=== PATIENT | female | born 1980 | race Caucasian/White ===

== ENCOUNTER 2019-12-01 02:15 | Outpatient (CLI) | payer MEDICAID, SELFPAY ==
[2019-12-01 10:42] LABS: Hemoglobin A1C 5.8 % (3.8-5.6)
[2019-12-01 10:48] LABS: Calculated LDL 139 mg/dL (<100); Cholesterol 211 mg/dL (<200); HDL Cholesterol 42 mg/dL (40-60); TSH (W/Ref FT4) 1.12 uIU/mL (0.36-3.74); Triglyceride 150 mg/dL (<150)
== END 2019-12-01 02:35 ==
PROVIDERS: PCP Nurse Practitioner; Visit Provider Nurse Practitioner
DX: E03.9 Hypothyroidism, unspecified (principal); Z13.1 Encounter for screening for diabetes mellitus
CPT/HCPCS: 36415; 80061; 83036; 84443

== ENCOUNTER 2019-12-07 03:56 | Outpatient (CLI) | payer MEDICAID, SELFPAY ==
[2019-12-07 13:04] LABS: Abs Immature Grans 0.01 k/cumm (0.0-0.09); Absolute Basophil Count 0.02 k/cumm (0.0-0.2); Absolute Eosinophil Count 0.19 k/cumm (0.0-0.7); Absolute Lymphocyte Count 3.12 k/cumm (1.2-3.4); Absolute Monocyte Count 0.44 k/cumm (0.11-0.7); Absolute Neutrophil Count 3.47 k/cumm (1.2-6.7); Basophils % 0.3; Eosinophils % 2.6; HCT 40.1 % (36.0-46.0); HGB 13.6 g/dL (12.0-15.5); Immature Grans % 0.1 %; Mean Corp. HGB Concentration 33.9 g/dL (32.0-36.0); Mean Corpuscular Hemoglobin 31.2 pg (27.0-33.0); Mean Platelet Volume 9.6 fL (8.0-11.0); Monocytes % 6.1; Neutrophils % 47.9; Platelet Count 351 x1000/uL (130-400); RBC 4.36 m/cumm (4.00-5.20); RBC Distribution Width 12.9 % (11.7-14.6); White Blood Cell Count 7.25 k/cumm (4.4-10.8)
[2019-12-07 13:28] LABS: ALT 48 U/L (14-59); AST 35 U/L (15-37); Albumin 3.6 g/dL (3.4-5.0); Alkaline Phosphatase 81 U/L (46-116); BUN 9 mg/dL (7-18); Bilirubin, Total 0.2 mg/dL (0.2-1.0); CREATININE 0.97 mg/dL (0.55-1.02); Calcium 8.9 mg/dL (8.5-10.1); Chloride 104 mmol/L (98-107); Glucose 104 mg/dL (74-106); Potassium 4.1 mmol/L (3.5-5.1); Sodium 141 mmol/L (136-145)
[2019-12-08 10:46] LABS: Hepatitis C Ab w Rflx HCV PCR Reactive (Negative)
[2019-12-10 08:44] LABS: HCV RNA Detection Quantitative 0 IU/mL (Undetected)
== END 2019-12-07 04:16 ==
PROVIDERS: PCP Nurse Practitioner; Visit Provider Physician Assistant Medical
DX: B18.2 Chronic viral hepatitis C (principal)
CPT/HCPCS: 36415; 80053; 86803; 85025; 87522

== ENCOUNTER 2020-05-17 03:14 | Outpatient (CLI) | payer MEDICAID, SELFPAY ==
[2020-05-17 13:22] LABS: Abs Immature Grans 0.03 10^3/uL (0.0-0.06); Absolute Basophil Count 0.03 10^3/uL (0.0-0.2); Absolute Eosinophil Count 0.18 10^3/uL (0.0-0.7); Absolute Lymphocyte Count 3.26 10^3/uL (1.2-3.4); Absolute Monocyte Count 0.47 10^3/uL (0.1-0.8); Absolute Neutrophil Count 4.29 10^3/uL (1.2-6.7); Basophils % 0.4; Eosinophils % 2.2; HCT 43.1 % (36.0-46.0); HGB 14.5 g/dL (11.2-15.7); Immature Grans % 0.4; Lymphocytes % 39.5; MCHC 33.6 % (32.0-36.0); MCV 92.3 fL (80-95); MPV 8.9 fL (8.0-11.0); Monocytes % 5.7; Neutrophils % 51.8; Nucleated RBC 0 %; Platelet Count 382 10^3/uL (130-400); RBC 4.67 10^6/uL (3.93-5.22); RDW 14.2 % (11.7-14.6); RDW-SD 47.5 fL; WBC 8.26 10^3/uL (4.4-10.8)
[2020-05-17 13:30] LABS: Prothrombin Time 10.4 sec (9.3-11.0)
[2020-05-17 14:01] LABS: ALT 41 U/L (14-59); AST 41 U/L (15-37); Albumin 3.8 g/dL (3.4-5.0); Alkaline Phosphatase 78 U/L (46-116); Anion Gap 13.8 mmol/L (3-11); BUN 3 mg/dL (7-18); Bilirubin, Total 0.3 mg/dL (0.2-1.0); CO2 22.2 mmol/L (21.0-32.0); CREATININE 0.82 mg/dL (0.55-1.02); Calcium 9.2 mg/dL (8.5-10.1); Chloride 102 mmol/L (98-107); Glucose 97 mg/dL (74-106); Potassium 3.5 mmol/L (3.5-5.1); Sodium 138 mmol/L (136-145); Total Protein 7.3 g/dL (6.4-8.2)
[2020-05-18 13:13] LABS: HCV RNA Qualitative Undetected (Undetected)
== END 2020-05-17 03:34 ==
PROVIDERS: PCP Nurse Practitioner; Visit Provider Physician Assistant Medical
DX: B18.2 Chronic viral hepatitis C (principal)
CPT/HCPCS: 36415; 80053; 86803; 87522; 85025; 85610

== ENCOUNTER 2022-05-18 12:29 | Emergency (ER) | payer MEDICAID, SELFPAY ==
[2022-05-18 12:38] VITALS: BP 175/152; PULSE 99; RESP 22; TEMP 36.8; O2SAT 99
--- NOTE | 2022-05-18 12:49 | ED.GENADUL_ITS ---
Discharge Plan Disposition Patient Disposition: HOME Condition: Stable Discharge Details Clinical Impression: UTI (urinary tract infection) Primary Care Provider: Patricia De Oliveira ED Provider: Nish Solis Home Meds and New Rx's Prescriptions: New cephalexin 500 mg capsule 500 mg PO TID 5 Days Qty: 15 0RF Continued albuterol sulfate 90 mcg/actuation HFA aerosol inhaler 2 puff IH QID PRN (Reason: shortness of breath or wheezing) Qty: 8.5 3RF bupropion HCl 300 mg tablet extended release 24 hr 300 mg PO QAM dextroamphetamine sulfate 20 mg tablet 20 mg PO TID gabapentin 600 mg tablet 600 mg PO TID drospirenone-ethinyl estradiol 3-0.02 mg tablet 1 tab PO DAILY olopatadine 0.1 % drops 1 drp OP BID Qty: 5 1RF Rx Instructions: 1 drop each eye 2x per day: separate doses by at least 6-8 hours clonazepam 1 MG tablet 1 mg PO BID PRN Discharge Instructions Instructions: Urinary Tract Infection in Women (ED) Additional Instructions: Take the antibiotic cephalexin every 6 hours today and then begin every 8 hours/3 times a day until finished. Take Pyridium 2 times daily to heavy forger helper in reducing the uncomfortable sensation. This will turn your urine bright orange or yellow. A nonurgent referral has been placed on your behalf for evaluation of recurrent pilonidal cyst. Return to the emergency department for any acute concerns. Medical Decision Making 41-year-old female presents from home with days of intermittent burning and frequency of urine. She has had 2 spontaneous and 2 elective abortions but no term pregnancies. Breast menstrual period was approximately 1 month ago. Urinalysis obtained: Consistent with acute UTI. Will initiate Keflex and Pyridium. Patient is not . Patient also states she has had intermittent and recurrent drainage from piloni hyacinth cyst and requests nonurgent follow-up in general surgery clinic. I do feel it reasonable to place this referral on her behalf, that she may be seen in approximately 2 to 4 weeks time. Lab Data Lab results reviewed: Yes I reviewed the patient's lab results. Labs: Laboratory Results - last 24 hr 05/18/22 12:50 Urine Color Yellow Urine Clarity Clear Urine pH 6.0 Ur Specific [place] <= 1.005 Urine Protein Negative Urine Ketones Negative Urine Blood Negative Urine Nitrite Negative Urine Bilirubin Negative Urine Urobilinogen 0.2 Ur Leukocyte Esterase Small H Urine RBC 0-2 Urine WBC 20-50 H Ur Epithelial Cells Few Urine Crystals Negative Urine Bacteria Few Urine Casts Negative Urine Mucus Negative Ur Culture Indicated? Yes Urine Glucose Negative HPI General Mode of arrival: ambulatory . Date/Time Provider Initiated Documentation: 05/18/22 12:31 . Limitations to Documentation: no limitations . Information obtained by: patient . History of Present Illness 41 year old F presents to the emergency department with the chief complaint of Increased frequency and burning of urine, described as mild, and is localized to the genitals. Patient reports no radiation. Patient started experiencing this day(s) and it has been intermittent. No relieving factors improve symptom(s), No exacerbating factors reported . Patient notes denies fever/chills and nausea/vomiting. Patient did receive the following treatments prior to arrival, none Related Data Home Medications Medication Instructions Recorded Confirmed clonazepam 1 mg tablet 1 mg PO BID PRN 03/07/17 07/13/21 bupropion HCl 300 mg 24 hr tablet, 300 mg PO QAM 11/08/19 07/13/21 extended release dextroamphetamine sulfate 20 mg 20 mg PO TID 11/08/19 07/13/21 tablet drospirenone 3 mg-ethinyl 1 tab PO DAILY 11/08/19 07/13/21 estradiol 0.02 mg tablet gabapentin 600 mg tablet 600 mg PO TID 11/08/19 07/13/21 albuterol sulfate 90 mcg/actuation 2 puff inhalation QID PRN 01/03/20 07/13/21 aerosol inhaler shortness of breath or wheezing #8.5 grams olopatadine 0.1 % eye drops 1 drp ophthalmic (eye) BID #5 mL 03/02/20 07/13/21 cephalexin 500 mg capsule 500 mg PO TID 5 days #15 caps 05/18/22 Previous Rx's Medication Instructions Recorded albuterol sulfate 90 mcg/actuation 2 puff inhalation QID PRN 01/03/20 aerosol inhaler shortness of breath or wheezing #8.5 grams olopatadine 0.1 % eye drops 1 drp ophthalmic (eye) BID #5 mL 03/02/20 cephalexin 500 mg capsule 500 mg PO TID 5 days #15 caps 05/18/22 Allergies Allergy/AdvReac Type Severity Reaction Status Date / Time avocado Allergy Mild Hives, Unverified 12/02/19 11:12 difficulty breathing and swallowing coconut Allergy Mild facial Unverified 12/02/19 11:12 swelling house dust mite AdvReac Mild rash, Verified 12/02/19 11:12 itching mold AdvReac Mild rash, Verified 12/02/19 11:12 rhinitis pollen extracts AdvReac Mild itching Verified 12/02/19 11:12 artificial lemonade Allergy Mild Hives Uncoded 07/13/21 16:20 artificial strawberry flavor AdvReac Mild hives Uncoded 07/13/21 16:19 General Stated Complaint: Urinary GAYLE: 3 Review of Systems Narrative: No fever, chills, cough, nausea or vomiting. PFSH All Active Problems (Updated 05/18/22 @ 12:59 by Nish Solis MD) UTI (urinary tract infection) (Acute) Cough (Acute) Numbness and tingling in both hands (Acute) Hyperlipidemia (Acute) Glucose intolerance (Acute) Tobacco dependence (Acute) Elevated blood pressure reading without diagnosis of hypertension (Acute) PCOS (polycystic ovarian syndrome) (Acute) Alcoholism /alcohol abuse (Acute) Chronic hepatitis C without hepatic coma (Acute) 02/2020 [place] [facility] [place] Mild intermittent asthma (Acute) Psychotic disorder (Acute) Depression (Chronic) Post traumatic stress disorder (Acute) Anxiety and depression (Acute) Overweight (Acute) Hypothyroidism (acquired) (Acute) Medical History Periapical abscess Family History Mother Cancer Father Diabetes Heart disease Hyperlipidemia Hypertension Brother Depression Maternal Grandfather Heart disease Hypertension Paternal Grandfather Heart disease Hyperlipidemia Hypertension Maternal Grandmother No problems noted. Paternal Grandmother No problems noted. Social History Smoking/Tobacco Use Status: Current every day Tobacco Type: cigarettes Quit status: considering quitting Smoking risk assessment performed?: Yes Alcohol Intake: current Alcohol Intake frequency: a few times a week Alcohol type: hard liquor Drug use: Never Caregiver/Support person: No Household members: other Details: Mother,father Housing: house Communication Needs: None Do you need help understanding health information?: Never Pets and animals: No Sexually active: No Do you think of yourself as: straight/heterosexual Current gender identity: female What is your relationship status?: never How often do you talk on the phone with friends or family?: once per week How often do you get together with friends or relatives?: decline to answer How often do you attend orthodoxy or sikhism services?: 4 or more times per year Do you belong to any clubs or organized social groups?: no Panel score (0-1 are the most socially isolated patients): 1 What type of physical activity do you participate in: none Frequency: does not exercise [place]/Orthodox: Buddhism Special chelsea needs: No Seatbelt use: always Helmet use: No Drive intox or ride w/intox experienced truck driver: No Do you feel safe in your relationship?: Yes Exam Narrative Exam Narrative: GEN: awake, alert, oriented 3. Pleasant, well groomed, interactive. HEAD: Normocephalic, atraumatic ENT: Mucous membranes moist, oropharynx unremarkable, External ear exam unremarkable EYES: PERRL, EOMI NECK: Full ROM, no PALMA, no menigismus CHEST/RESP: Nontender, clear to auscultation bilateral, no wheeze/rhonchi/rales CARDIOVASCULAR: RRR, no murmur, rub patrizia. 2+ Rad pulse bilateral ABDOMEN: Soft, mild suprapubic tenderness without rebound or guarding, no mass. +Bowel sounds EXT: Full ROM, no edema, no rash Neuro: Grossly normal neurologic exam, conversant, interactive. Psych: Speech fluent, thoughts congruent, affect normal Course Vital Signs Vital signs: Vital Signs Temperature 36.8 C 05/18/22 12:38 Pulse 99 H 05/18/22 12:38 Respiratory Rate 05/18/22 12:38 Blood Pressure 175/152 H 05/18/22 12:38 Pulse Oximetry 99 05/18/22 12:38 Temperature 36.8 C 05/18/22 12:38 Temperature Source Oral 05/18/22 12:38 Pulse 99 H 05/18/22 12:38 Respiratory Rate 05/18/22 12:38 Blood Pressure 175/152 H 05/18/22 12:38 Blood Pressure Position Standing 05/18/22 12:38 Pulse Oximetry 99 05/18/22 12:38 Oxygen Delivery Method Room Air 05/18/22 12:38 Oxygen Flow Rate 0 05/18/22 12:38
[2022-05-18 12:58] LABS: Bilirubin Negative (Negative); Blood Negative (Negative); Clarity Clear (Clear); Glucose Negative (Negative); Ketones Negative (Negative); Leukocyte Esterase Small (Negative); Nitrite Negative (Negative); Specific Gravity <= 1.005 (1.005-1.025); Urobilinogen 0.2 EU/dL (Up TO 0.2)
[2022-05-18 13:06] LABS: Bacteria Few HPF (Negative); C & S Indicated? Yes; Casts Negative LPF (Negative); Crystals Negative HPF (Negative); Epithelial Cells Few HPF (Negative); Mucus Negative (Negative); RBC 0-2 HPF (0-2); WBC 20-50 HPF (0-5)
--- NOTE | 2022-05-18 13:07 | NUR.NOTE ---
pyridium cyst needs referral to general syrgery within 3-4 weeks. p/
[2022-05-18] MEDS: Phenazopyridine 100 MG TAB, 2 TABS/BTL PO (13:10)
[2022-05-18] MEDS: Cephalexin 500 MG CAP, 4 CAPS/BTL PO (13:11)
--- NOTE | 2022-05-18 20:39 | NUR.NOTE ---
[facility]erral [facility] f/u 3-4 weeksNursing Note:
== END 2022-05-18 13:13 | disposition home or self-care (01) ==
PROVIDERS: Emergency Provider Emergency Medicine; PCP Nurse Practitioner
DX: N39.0 Urinary tract infection, site not specified (principal); B96.20 Unspecified Escherichia coli [E. coli] as the cause of diseases classified elsewhere; L05.91 Pilonidal cyst without abscess
CPT/HCPCS: 81025; 87077; 99283; 81003; 81015; 87086; 87186

== ENCOUNTER 2025-04-12 15:12 | Outpatient (REF) | payer MEDICAID, SELFPAY ==
[2025-04-12 13:20] LABS: Hemoglobin A1C 5.7 % (<5.7)
[2025-04-12 13:29] LABS: ALT 38 U/L (14-59); AST 56 U/L (15-37); Albumin 4.0 g/dL (3.4-5.0); Alkaline Phosphatase 116 U/L (46-116); Anion Gap 11.6 mmol/L (3-11); BUN 4 mg/dL (7-18); Bilirubin, Total 0.3 mg/dL (0.2-1.0); CO2 25.4 mmol/L (21.0-32.0); Calcium 9.5 mg/dL (8.5-10.1); Chloride 101 mmol/L (98-107); Cholesterol 266 mg/dL (<200); Estimated GFR 114.86 (mL/min/1.73m2); Glucose 108 mg/dL (74-106); HDL Cholesterol 46 mg/dL (>or=50); Potassium 4.1 mmol/L (3.5-5.1); Sodium 138 mmol/L (136-145); TSH (W/Ref FT4) 2.72 uIU/mL (0.36-3.74); Total Protein 7.9 g/dL (6.4-8.2); Triglyceride 728 mg/dL (<150)
[2025-04-12 13:59] LABS: LDL CHOLESTEROL 121 mg/dL (<100)
[2025-04-13 11:32] LABS: HBs Antibody, Quant 321.6 mIU/mL (See Note); Hepatitis B Surface Antigen Negative (Negative); Syphilis Serology (RPR) Negative (Negative)
[2025-04-13 11:59] LABS: Hepatitis C Ab w Rflx HCV PCR Reactive (Negative)
[2025-04-13 13:35] LABS: HIV-1/2 Ag & Ab Screen Negative (Negative)
== END 2025-04-12 15:13 | disposition home or self-care (01) ==
LOC: LBN 15:12
PROVIDERS: PCP Nurse Practitioner Family; Visit Provider Nurse Practitioner Family
DX: E03.9 Hypothyroidism, unspecified (principal); R73.03 Prediabetes; Z11.3 Encounter for screening for infections with a predominantly sexual mode of transmission; E78.5 Hyperlipidemia, unspecified
CPT/HCPCS: 80053; 80061; 83721; 86704; 86706; 86803; 87340; 87389; 87491; 87522; 87591; 83036; 84443; 86592

== ENCOUNTER 2025-07-14 09:33 | Outpatient (CLI) | payer MEDICAID, SELFPAY ==
[2025-07-14 14:16] LABS: Anion Gap 10.8 mmol/L (3-11); BUN 3 mg/dL (7-18); CO2 27.2 mmol/L (21.0-32.0); Calcium 9.0 mg/dL (8.5-10.1); Chloride 98 mmol/L (98-107); Estimated GFR 109.98 (mL/min/1.73m2); Glucose 106 mg/dL (74-106); Potassium 3.3 mmol/L (3.5-5.1); Sodium 136 mmol/L (136-145)
== END 2025-07-14 09:34 | disposition home or self-care (01) ==
LOC: LOS 09:34
PROVIDERS: PCP Nurse Practitioner Family; Visit Provider Nurse Practitioner Family
DX: I10 Essential (primary) hypertension (principal)
CPT/HCPCS: 36415; 80048

== ENCOUNTER 2025-07-14 10:02 | Outpatient (CLI) | payer MEDICAID, SELFPAY ==
--- NOTE | 2025-07-14 10:00 | DI.RAD_ITS ---
Exam(s) XR LUMBAR SPINE COMPLETE EXAM: XR LUMBAR SPINE COMPLETE CLINICAL HISTORY: 2 weeks of pain, bilateral, no radiation, LOW BACK PAIN M54.50. TECHNIQUE: 2D digital imaging was performed. COMPARISON: No exams were available for comparison FINDINGS: Five views No evidence of fracture, listhesis, nor pars interarticularis defects. There is multilevel anterior osseous lipping at L3-4 and L4-5 levels which may indicate degenerative disc disease despite preserved disc height at these levels. Some disc space narrowing evident at T12-L1. Bone density normal. No osseous lesions. Facet joints appear unremarkable as do the sacroiliac joints. There is a very mild scoliosis IMPRESSION: Mild findings as described above. DATA REPOSITORY: RADIATION DOSE DELIVERED:
== END 2025-07-14 10:22 ==
LOC: DI 10:03
PROVIDERS: PCP Nurse Practitioner Family; Visit Provider Nurse Practitioner Family
DX: M54.50 Low back pain, unspecified (principal)
CPT/HCPCS: 72110

== ENCOUNTER 2025-09-19 14:17 | Outpatient (CLI) | payer MEDICAID, SELFPAY ==
[2025-09-19 17:39] LABS: ALT 38 U/L (10-49); AST 41 U/L (<34); Albumin 5.0 g/dL (3.2-5.0); Alkaline Phosphatase 119 U/L (46-116); Anion Gap 9.5 mmol/L (3-11); BUN 5 mg/dL (9-23); Bilirubin, Total 0.4 mg/dL (0.2-1.2); CO2 27.2 mmol/L (20.0-31.0); Calcium 9.7 mg/dL (8.3-10.6); Chloride 98 mmol/L (98-107); Cholesterol 208 mg/dL (<200); Glucose 127 mg/dL (74-106); HDL Cholesterol 45 mg/dL (>40); Potassium 2.8 mmol/L (3.5-5.1); Sodium 135 mmol/L (136-145); Total Protein 8.4 g/dL (5.7-8.2)
== END 2025-09-19 14:18 | disposition home or self-care (01) ==
PROVIDERS: PCP Nurse Practitioner Family; Visit Provider Nurse Practitioner Family
DX: E78.5 Hyperlipidemia, unspecified (principal)
CPT/HCPCS: 36415; 80053; 80061